=== PATIENT | female | born 1955 | race Caucasian/White ===

== ENCOUNTER → 2016-11-21 | Outpatient (CLI) | payer OTHER ==
[~2016-11-21] MED LIST: ACHD5005 PO; ALPR.25T PO; DULO60CA6 PO; GLMP2T PO; METF-380 PO; OLME20TA5 PO; SERT50TA; SIMV40TA4 PO; SMV20T
--- NOTE | 2016-11-21 11:56 | Diagnostic Imaging Report ---
PA and lateral views of the chest. INDICATION: Shortness of breath. COMPARISON: 06/07/12 FINDINGS: The lungs are clear. The heart size is normal. There is no effusion or pneumothorax. The mediastinum and abena appear unremarkable. IMPRESSION: Unremarkable exam. Dictated by: Dictated on workstation # [id number]
== END ==
LOC: RAD 09:38
PROVIDERS: ATTEND Family Medicine
DX: R06.02 Shortness of breath (principal); R22.43 Localized swelling, mass and lump, lower limb, bilateral; R22.33 Localized swelling, mass and lump, upper limb, bilateral
CPT/HCPCS: 71020

== ENCOUNTER → 2017-09-07 | Outpatient (CLI) | payer OTHER ==
[~2017-09-07] MED LIST changes: +ALPR0.254 PO; +ATOR20TA66 PO; +ESTR1TAB24 PO; +GLIM4TAB PO; +LIRA0.6P3 SQ; +LOSA50TA36 PO; +MEDR2.5T PO; +PANT40TA3 PO; +PARO10TA81 PO; +PHEN-483 PO
[2017-09-07 13:21] LABS: BASOPHILS % (AUTO) 0 % (0-10); EOSINOPHILS # (AUTO) 0.2 10^3/uL (0.0-0.3); EOSINOPHILS % (AUTO) 3 % (0-10); HEMATOCRIT 39 % (35-52); HEMOGLOBIN 13.7 G/DL (11.5-16.0); LYMPHOCYTES % (AUTO) 33 % (12-44); MEAN CORPUSCULAR HEMOGLOBIN 30 PG (25-34); MEAN CORPUSCULAR HGB CONC 35 G/DL (32-36); MEAN CORPUSCULAR VOLUME 86 FL (80-99); MEAN PLATELET VOLUME 9.7 FL (7.4-10.4); MONOCYTES # (AUTO) 0.9 X 10^3 (0.0-1.0); MONOCYTES % (AUTO) 10 % (0-12); NEUTROPHILS # (AUTO) 4.9 X 10^3 (1.8-7.8); NEUTROPHILS % (AUTO) 54 % (42-75); PLATELET COUNT 290 10^3/uL (130-400); RED BLOOD COUNT 4.52 10^6/uL (4.35-5.85); RED CELL DISTRIBUTION WIDTH 12.7 % (10.0-14.5); WHITE BLOOD COUNT 9.1 10^3/uL (4.3-11.0)
== END ==
LOC: LAB 12:56
PROVIDERS: ATTEND Family Medicine
DX: R10.31 Right lower quadrant pain (principal)
CPT/HCPCS: 36415; 85025

== ENCOUNTER → 2017-09-10 | Outpatient (CLI) | payer OTHER ==
[~2017-09-10] MED LIST changes: +IOHEXOL 350 MG/ML 100 ML (OMNIPAQUE 350) VIAL IV ONE; +NS 250 ML (IVPB) BAG IV ONE
[2017-09-10 08:44] LABS: BUN/CREATININE RATIO 15; CREATININE SERUM 0.73 MG/DL (0.60-1.30); GFR ESTIMATED > 60
--- NOTE | 2017-09-10 11:26 | Diagnostic Imaging Report ---
PROCEDURE: CT abdomen and pelvis with contrast. TECHNIQUE: Multiple contiguous axial images were obtained through the abdomen and pelvis after administration of intravenous contrast. INDICATION: Right lower quadrant pain and tenderness. Symptoms were worse over the weekend and the patient reports they have improved at least somewhat. The exam compared to 11/09/2015 Findings: Findings: There is an inflammatory fatty mass effect medial to the midsegment of the ascending colon consistent with right-sided epiploic appendagitis. The tubular appendage itself measures 2.4 cm in length by a thickness of 9 mm with peripheral edema. There is no fluid collection. This is on the medial/mesenteric border of the ascending colon. The proximal ascending colon as well as the cecum are transversely oriented in the pelvis adjacent to multiple sigmoid diverticuli challenging differentiation of the air-containing appendix from adjacent noninflamed diverticuli. The appendix is felt to be unremarkable. There is no finding suggestive of active sigmoidal diverticulitis. There is no abscess or fluid collection. No free air or perforation. There is no bowel obstruction. The colon itself aside from the sigmoidal diverticuli appeared unremarkable without wall thickening or mucosal edema or hyperemia. Uterus, adnexa and urinary bladder unremarkable. 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 The right kidney is orthotopic unobstructed and normal. The gallbladder absent. There is a small hiatal hernia. Liver, spleen, adrenals and pancreas were normal. There is aortoiliac atherosclerosis without stenosis or obstruction. Impression: A fatty inflammatory mass effect in the right lower quadrant has a tubular morphology and arises off the medial/mesenteric border of the midsegment of the ascending colon and is consistent with right sided acute epiploic appendagitis. Noninflamed sigmoid diverticulosis and no findings suggestive of appendicitis. No abscess, obstruction, perforation, ascites or fluid collection. Small and large bowel mera themselves and mucosal surfaces appeared unremarkable. 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 Dictated by: Dictated on workstation # [id number]
== END ==
LOC: RAD 08:10
PROVIDERS: ATTEND Family Medicine
DX: R19.03 Right lower quadrant abdominal swelling, mass and lump (principal); K57.30 Diverticulosis of large intestine without perforation or abscess without bleeding; Q63.2 Ectopic kidney
CPT/HCPCS: 36415; 74177; 82565; 84520

== ENCOUNTER 2017-09-29 05:41 | Outpatient (CLI) | payer OTHER ==
[~2017-09-29] VITALS: Ht 172.7 cm; Wt 88.0 kg
[~2017-09-29 05:41] MED LIST changes: -ALPR0.254 PO; -ATOR20TA66 PO; -ESTR1TAB24 PO; -GLIM4TAB PO; -IOHEXOL 350 MG/ML 100 ML (OMNIPAQUE 350) VIAL IV ONE; -LIRA0.6P3 SQ; -LOSA50TA36 PO; -MEDR2.5T PO; -NS 250 ML (IVPB) BAG IV ONE; -PANT40TA3 PO; -PARO10TA81 PO; -PHEN-483 PO
[2017-09-29] MEDS ORDERED: PARO10TA81 PO (15:22)
[2017-09-29] MEDS ORDERED: PHEN-483 PO (15:22)
[2017-09-29] MEDS ORDERED: ESTR1TAB24 PO (15:22)
[2017-09-29] MEDS ORDERED: GLIM4TAB PO (15:22)
[2017-09-29] MEDS ORDERED: PANT40TA3 PO (15:22)
[2017-09-29] MEDS ORDERED: LOSA50TA36 PO (15:22)
[2017-09-29] MEDS ORDERED: MEDR2.5T PO (15:22)
[2017-09-29] MEDS ORDERED: ALPR0.254 PO (15:22)
[2017-09-29] MEDS ORDERED: LIRA0.6P3 SQ (15:22)
[2017-09-29] MEDS ORDERED: ATOR20TA66 PO (15:22)
== END 2017-09-29 15:57 | disposition home or self-care (01) ==
LOC: PREOP 05:41
PROVIDERS: ATTEND Surgery
DX: Z01.818 Encounter for other preprocedural examination (principal)

== ENCOUNTER 2018-02-14 16:58 | Emergency (ER) | payer OTHER ==
[~2018-02-14] VITALS: Ht 172.7 cm; Wt 86.6 kg
[~2018-02-14 16:58] MED LIST changes: +ALPR0.254 PO; +ATOR20TA66 PO; +ESTR1TAB24 PO; +GLIM4TAB PO; +LIRA0.6P3 SQ; +LOSA50TA7 PO; +MEDR2.5T PO; +PANT40TA3 PO; +PARO10TA81 PO; +PHEN-483 PO
--- OUTSIDE RECORDS SUMMARY | 2018-02-14 17:03 | XMS REPORT | Continuity of Care Document ---
Author Author [facility] Organization [facility] Address Unknown Phone Unavailable Allergies Active Description Code Type Severity Reaction Onset Reported/Identified Relationship to Patient Clinical Status Yes [id number] (HAYFEVER) [id number] (HAYFEVER) Mild N/A 10/10/2008 Yes Sulfa (Sulfonamide Antibiotics) [id number] Drug Allergy Unknown NAUSEA Medications There is no data. Problems Date Dx Coded Attending Type Code Diagnosis Diagnosed By 09/05/2011 Ot 784.0 HEADACHE 06/08/2012 Ot 250.00 DIAB LISBETH WO COMPL, TYPE II OR UNSPEC TY 06/08/2012 Ot 272.4 HYPERLIPIDEMIA NEC/NOS 06/08/2012 Ot 401.9 HYPERTENSION NOS 06/08/2012 Ot 786.59 CHEST PAIN NEC 06/08/2012 Ot V03.82 PROPHYLACTIC VACC AGAINST STREPTOCOCCUS 06/08/2012 Ot V58.69 OTH MED,LT, CURRENT USE 03/18/2014 Ot V76.12 03/18/2014 AURORA LUCAS, FERCHO Staples Ot V76.12 03/18/2014 CAMRYN TINAJERO DO Ot 562.10 03/18/2014 GELCAMRYN NOEL DO Ot 787.3 03/18/2014 GELKRAIGDER CAMRYN MCKAY Ot 789.00 03/18/2014 GELLENDER CAMRYN MCKAY Ot 793.5 03/06/2015 Ot V76.12 03/06/2015 FERCHO SIMON MD Ot V76.12 03/06/2015 GELLENCAMRYN BATISTA DO Ot 562.10 03/06/2015 GELLENDER CAMRYN MCKAY Ot 787.3 03/06/2015 GELLENDER CAMRYN MCKAY Ot 789.00 03/06/2015 GELLENDER DOCAMRYN Ot 793.5 05/10/2015 GELCAMRYN NOEL DO Ot R22.1 06/07/2015 GELCAMRYN NOEL DO Ot R22.1 06/27/2015 Ot V76.12 06/27/2015 AURORA LUCAS, FERCHO Staples Ot V76.12 06/27/2015 GELLENDER DO, CAMRYN Darnell Ot 562.10 06/27/2015 GELLENDER DO, CAMRYN Darnell Ot 787.3 06/27/2015 GELLENDER DO, CAMRYN Darnell Ot 789.00 06/27/2015 GELLENDER DO, CAMRYN Darnell Ot 793.5 06/27/2015 GELLENDER DO, CAMRYN Darnell Ot R22.1 08/01/2015 Ot V76.12 OTH SCREEN MAMMO-MALIGN NEOPLASM OF EDGARD 08/01/2015 AURORA LUCAS, FERCHO Staples Ot V76.12 OTH SCREEN MAMMO-MALIGN NEOPLASM OF EDGARD 08/01/2015 GELLENDER DO, CAMRYN Darnell Ot 562.10 DIVERTICULOSIS COLON (W/O MENT OF HEMORR 08/01/2015 GELLENDER DO, CAMRYN Darnell Ot 787.3 FLATUL/ERUCTAT/GAS PAIN 08/01/2015 GELLENDER DO, CAMRYN Darnell Ot 789.00 ABDOMINAL PAIN, UNSPECIFIED SITE 08/01/2015 GELLENDER DO, CAMRYN Darnell Ot 793.5 NOSP (ABN) FINDINGS ON RADIOLOGICAL OT 08/01/2015 GELLENDER DO, CAMRYN Darnell Ot R22.1 LOCALIZED SWELLING, MASS AND LUMP, NECK 08/02/2015 GELLENDER DO, CAMRYN Darnell Ot Z12.31 ENCNTR SCREEN MAMMOGRAM FOR MALIGNANT NE 08/03/2015 GELLENDER DO, CAMRYN Darnell Ot Z12.31 ENCNTR SCREEN MAMMOGRAM FOR MALIGNANT NE 09/04/2015 GELLENDER DO, CAMRYN Darnell Ot Z12.31 ENCNTR SCREEN MAMMOGRAM FOR MALIGNANT NE 11/08/2015 GELLENDER DO, CAMRYN Darnell Ot N28.9 DISORDER OF KIDNEY AND URETER, UNSPECIFI 11/10/2015 GELLENDER DO, CAMRYN Darnell Ot K57.90 DVRTCLOS OF INTEST, PART UNSP, W/O PERF 11/10/2015 GELLENDER DO, CAMRYN Darnell Ot K57.90 DVRTCLOS OF INTEST, PART UNSP, W/O PERF 11/23/2015 GELLENDER DO, CAMRYN Darnell Ot N28.9 DISORDER OF KIDNEY AND URETER, UNSPECIFI 12/08/2015 GELLENDER DO, CAMRYN Darnell Ot K57.90 DVRTCLOS OF INTEST, PART UNSP, W/O PERF 11/21/2016 AURORA LUCAS, FERCHO Staples Ot V76.12 OTH SCREEN MAMMO-MALIGN NEOPLASM OF EDGARD 11/21/2016 GELLENDER DO, CAMRYN Darnell Ot 562.10 DIVERTICULOSIS COLON (W/O MENT OF HEMORR 11/21/2016 GELLENDER DO, CAMRYN Darnell Ot 787.3 FLATUL/ERUCTAT/GAS PAIN 11/21/2016 GELLENDER DO, CAMRYN Darnell Ot 789.00 ABDOMINAL PAIN, UNSPECIFIED SITE 11/21/2016 GELLENDER DO, CAMRYN Darnell Ot 793.5 NOSP (ABN) FINDINGS ON RADIOLOGICAL OT 11/21/2016 GELLENDER DO, CAMRYN Darnell Ot R22.1 LOCALIZED SWELLING, MASS AND LUMP, NECK 11/21/2016 GELLENDER DO, CAMRYN Darnell Ot Z12.31 ENCNTR SCREEN MAMMOGRAM FOR MALIGNANT NE 11/21/2016 [facility] CAM[facility]N Darnell Ot K57.90 DVRTCLOS OF INTEST, PART UNSP, W/O PERF 11/21/2016 GELLENDER DO, CAMRYN Darnell Ot N28.9 DISORDER OF KIDNEY AND URETER, UNSPECIFI 11/27/2016 GELLENDER DO, CAMRYN Darnell Ot R06.02 SHORTNESS OF BREATH 11/27/2016 GELLENDER DO, CAMRYN Darnell Ot R22.33 LOCALIZED SWELLING, MASS AND LUMP, UPPER 11/27/2016 GELLENDER DO, CAMRYN Darnell Ot R22.43 LOCALIZED SWELLING, MASS AND LUMP, LOWER 12/07/2016 GELLENDER DO, CAMRYN Darnell Ot R06.02 SHORTNESS OF BREATH 12/07/2016 GELLENDER DO, CAMRYN Darnell Ot R22.33 LOCALIZED SWELLING, MASS AND LUMP, UPPER 12/07/2016 GELLENDER DO, CAMRYN Darnell Ot R22.43 LOCALIZED SWELLING, MASS AND LUMP, LOWER 09/10/2017 COLTHARP DO, GEORGE Darnell Ot R10.31 RIGHT LOWER QUADRANT PAIN 09/11/2017 COLTHARP DO, GEORGE Darnell Ot K57.30 DVRTCLOS OF LG INT W/O PERFORATION OR AB 09/11/2017 COLTHARP DO, GEORGE Darnell Ot Q63.2 ECTOPIC KIDNEY 09/11/2017 COLTHARP DO, GEORGE A Ot R19.03 RIGHT LOWER QUADRANT ABDOMINAL SWELLING, 09/24/2017 COLTHARP DO, GEORGE A Ot R10.31 RIGHT LOWER QUADRANT PAIN 09/30/2017 DIMA HOLDER MD, Ot Z01.818 ENCOUNTER FOR OTHER PREPROCEDURAL EXAMIN 10/06/2017 DIMA HOLDER MD Ot D12.4 BENIGN NEOPLASM OF DESCENDING COLON 10/06/2017 DIMA HOLDER MD Ot E11.42 TYPE 2 DIABETES MELLITUS WITH DIABETIC P 10/06/2017 DIMA HOLDER MD, Ot K57.30 DVRTCLOS OF LG INT W/O PERFORATION OR AB 10/06/2017 DIMA HOLDER MD, Ot Z79.84 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 10/06/2017 DIMA HOLDER MD, Ot Z79.899 OTHER MCC (CURRENT) DRUG THERAPY 10/06/2017 DIMA HOLDER MD, Ot Z80.0 FAMILY HISTORY OF MALIGNANT NEOPLASM OF 10/08/2017 COLTHARP DO, GEORGE A Ot K57.30 DVRTCLOS OF LG INT W/O PERFORATION OR AB 10/08/2017 COLTHARP DO, GEORGE A Ot 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 Results Test Result Range Complete blood count (CBC) with automated white blood cell (WBC) differential - 09/07/17 13:18 Blood leukocytes automated count (number/volume) 9.1 10*3/uL 4.3-11.0 Blood erythrocytes automated count (number/volume) 4.52 10*6/uL 4.35-5.85 Venous blood hemoglobin measurement (mass/volume) 13.7 g/dL 11.5-16.0 Blood hematocrit (volume fraction) 39 % 35-52 Automated erythrocyte mean corpuscular volume 86 [foz_us] 80-99 Automated erythrocyte mean corpuscular hemoglobin (mass per erythrocyte) 30 pg 25-34 Automated erythrocyte mean corpuscular hemoglobin concentration measurement ( mass/volume) 35 g/dL 32-36 Automated erythrocyte distribution width ratio 12.7 % 10.0-14.5 Automated blood platelet count (count/volume) 290 10*3/uL 130-400 Automated blood platelet mean volume measurement 9.7 [foz_us] 7.4-10.4 Automated blood neutrophils/100 leukocytes 54 % 42-75 Automated blood lymphocytes/100 leukocytes 33 % 12-44 Blood monocytes/100 leukocytes 10 % 0-12 Automated blood eosinophils/100 leukocytes 3 % 0-10 Automated blood basophils/100 leukocytes 0 % 0-10 Blood neutrophils automated count (number/volume) 4.9 10*3 1.8-7.8 Blood lymphocytes automated count (number/volume) 3.0 10*3 1.0-4.0 Blood monocytes automated count (number/volume) 0.9 10*3 0.0-1.0 Automated eosinophil count 0.2 10*3/uL 0.0-0.3 Automated blood basophil count (count/volume) 0.0 10*3/uL 0.0-0.1 [id number] - 09/10/17 08:23 Serum or plasma urea nitrogen measurement (mass/volume) 11 mg/dL 7-18 Serum or plasma creatinine measurement (mass/volume) 0.73 mg/dL 0.60-1.30 Serum or plasma urea nitrogen/creatinine mass ratio 15 NRG Serum or plasma creatinine measurement with calculation of estimated glomerular filtration rate > NRG Capillary blood glucose measurement by glucometer (mass/volume) - 10/06/17 07: 33 Capillary blood glucose measurement by glucometer (mass/volume) 133 mg/dL 70-110 Encounters ACCT No. Visit Date/Time Discharge Status Pt. Type Provider Facility Loc./Unit Complaint [id number] 10/06/2017 06:50:00 10/06/2017 10:00:00 DIS Outpatient DIMA HOLDER MD [facility] ENDO ABNORMAL CT/FAMILY HX [id number] 09/29/2017 05:41:00 09/29/2017 15:57:00 DIS Outpatient DIMA HOLDER MD [facility] PREOP COLONOSCOPY [id number] 09/10/2017 08:10:00 09/10/2017 23:59:59 CLS Outpatient THGEORGE ROSE DO [facility] RAD RLQ PAIN AND TENDERNESS [id number] 09/07/2017 12:56:00 09/07/2017 23:59:59 CLS Outpatient GEORGE ANDREWS DO [facility] LAB RIGHT LOWER QUADRANT PAIN [id number] 11/21/2016 09:38:00 11/21/2016 23:59:59 CLS Outpatient CAMRYN TINAJERO DO [facility] RAD SHORT OF BREATH [id number] 11/09/2015 08:37:00 11/09/2015 23:59:59 CLS Outpatient TANVI MCKAY CAMRYN Darnell [facility] RAD ABDOMINAL PAIN [id number] 11/07/2015 17:17:00 11/07/2015 23:59:59 CLS Outpatient NARABERT MCKAY CAMRYN Darnell [facility] LAB RENAL INSUFF [id number] 08/01/2015 10:17:00 08/01/2015 23:59:59 CLS Outpatient CAMRYN TINAJERO DO [facility] RAD SCREENING [id number] 03/06/2015 11:36:00 03/06/2015 23:59:59 CLS Outpatient ROBINLESTER CAMRYN Darnell [facility] RAD SWELLING ON LEFT SIDE OF NECK, ONSET RECENTLY [id number] 07/25/2014 18:42:00 07/25/2014 23:59:59 CLS Outpatient TANMAY PETERSEN [facility] QUICK [id number] 03/18/2014 12:13:00 03/18/2014 12:13:00 CAN Preadmit LOPEZ GARCIA MD [facility] ER [id number] 2013 10:10:00 2013 23:59:59 CLS Outpatient GELLENDER DO, CAMRYN A [facility] RAD ABD DISENTION, ABD PAIN [id number] 11/04/2012 10:39:00 11/04/2012 23:59:59 CLS Outpatient FERCHO SIMON MD [facility] RAD SCREENING [id number] 03/06/2015 11:36:00 Document Registration [id number] 06/07/2012 01:25:00 Document Registration [id number] 09/05/2011 12:17:00 Document Registration [id number] 03/22/2010 09:07:00 Document Registration [id number] 07/25/2014 18:43:18 ACT Document Registration [id number] 05/08/2017 15:10:00 05/08/2017 23:59:59 CLS Outpatient [facility]
[2018-02-14] MEDS ORDERED: HYDROcodone/APAP 5 MG/325 MG (LORTAB) TAB PO ONE (18:15)
--- NOTE | 2018-02-14 18:41 | Diagnostic Imaging Report ---
INDICATION: Fall with left knee injury and pain. AP, oblique and lateral views of the left knee reveal horizontally oriented nondisplaced fracture through the mid portion of the patella. No other fracture or malalignment is identified. There is no abnormal lytic or sclerotic focus. IMPRESSION: Nondisplaced horizontal fracture through the mid patella. Dictated by: Dictated on workstation # [id number]
[2018-02-14] MEDS ORDERED: ACHD5005 PO (19:00)
[2018-02-14] MEDS ORDERED: RX-HYDROCODONE/APAP 5/325 MG #4 TAB PK PO PRN (19:00)
--- NOTE | 2018-02-14 19:00 | ED Lower Extremity ---
General Chief Complaint: Lower Extremity Stated Complaint: L KNEE PAIN/FALL Nursing Triage Note: AMB TO ROOM C/O L KNEE PAIN AFTER FALL. Nursing Sepsis Screen: No Definite Risk Source: patient Exam Limitations: no limitations History of Present Illness Date Seen by Provider: Feb 14, 2018 Time Seen by Provider: 18:00 Initial Comments Patient is a 62-year-old female who presents to the emergency room with complaints of left knee pain after a fall around 8:00 this morning. She reports that she was walking to the house in the dark when she slipped on some spilled dog food causing her to land with her knee to the dog's food bowl. She reports that she's had pain with ambulation ever since. Onset: this morning Pain/Injury Location: left knee Method of Injury: fell Modifying Factors: Worse With Movement Allergies and Home Medications Allergies Coded Allergies: Sulfa (Sulfonamide Antibiotics) (Verified Allergy, Unknown, NAUSEA, ) Home Medications Alprazolam 0.25 Mg Tablet, 0.25 MG PO HS PRN for SLEEP, (Reported) Atorvastatin Calcium 20 Mg Tablet, 20 MG PO HS, (Reported) Estradiol 1 Mg Tablet, 1 MG PO DAILY, (Reported) Glimepiride 4 Mg Tablet, 4 MG PO DAILY, (Reported) Hydrocodone Bit/Acetaminophen 1 Tab Tab, 1-2 EACH PO Q6H PRN for PAIN-MODERATE Prescribed by: LUZ ELENA LOPEZ on 02/14/18 1900 Liraglutide 0.6 Mg/0.1 Ml Pen.injctr, 1.2 MG SQ DAILY, (Reported) Losartan Potassium 50 Mg Tablet, 50 MG PO DAILY, (Reported) Medroxyprogesterone Acetate 2.5 Mg Tablet, 2.5 MG PO DAILY, (Reported) Pantoprazole Sodium 40 Mg Tablet.dr, 40 MG PO DAILY, (Reported) Paroxetine HCl 10 Mg Tablet, 10 MG PO DAILY, (Reported) Phentermine HCl 37.5 Mg Capsule, 37.5 MG PO DAILY, (Reported) Patient Home Medication List Home Medication List Reviewed: Yes Review of Systems Constitutional: see HPI; No chills, No fever Musculoskeletal: see HPI, joint pain (left knee pain) Skin: see HPI, other (abrasion to the left knee) All Other Systems Reviewed Negative Unless Noted: Yes Past Dsdjqvo-Xgosqe-Frvjhf Hx Past Med/Social Hx: Reviewed Nursing Past Med/Soc Hx Patient Social History Alcohol Use: Denies Use Recreational Drug Use: No Smoking Status: Never a Smoker Recent Foreign Travel: No Contact w/Someone Who Travel: No Recent Infectious Disease Expo: No Recent Hopitalizations: No Immunizations Up To Date Tetanus Booster (TDap): Unknown Date of Influenza Vaccine: Jan 13, 2012 Seasonal Allergies Seasonal Allergies: Yes Past Medical History Surgeries: Yes Gallbladder, Tonsillectomy Respiratory: No (UNDIAGNOSED SLEEP APNEA PER PT'S ) Currently Using CPAP: No Currently Using BIPAP: No Cardiac: Yes Hypertension Neurological: Yes Headaches /Migraines Reproductive Disorders: No Female Reproductive Disorders: Denies Sexually Transmitted Disease: No Gastrointestinal: Yes Gastroesophageal Reflux, Chronic Constipation Musculoskeletal: No Endocrine: Yes Diabetes, Non-Insulin dep Loss of Vision: Bilateral Hearing Impairment: Denies Cancer: No Did You Recieve Any Treatments: No Psychosocial: Yes Anxiety Integumentary: No Blood Disorders: No Family Medical History Reviewed Nursing Family Hx Physical Exam Vital Signs Vital Signs - First Documented 02/14/18 17:51 Temp 99.0 Pulse 93 Resp 18 B/P (MAP) 126/78 (94) Pulse Ox 97 O2 Delivery Room Air Capillary Refill : Less Than 3 Seconds Height, Weight, BMI Height: 5'8.00" Weight: 191lbs. 0.0oz. 86.994847nd; 29.5 BMI Method:Stated General Appearance: WD/WN, no apparent distress Neck: non-tender, full range of motion, supple, normal inspection Cardiovascular: normal peripheral pulses, regular rate, rhythm, no edema, no gallop, no JVD, no murmur Respiratory: chest non-tender, lungs clear, normal breath sounds, no respiratory distress, no accessory muscle use Knees: left knee pain, left knee soft tissue tenderness, left knee other ( abrasion to the left knee) Neurologic/Tendon: normal sensation, normal motor functions, normal tendon functions, responds to pain, no evidence tendon injury Neurologic/Psychiatric: alert, normal mood/affect, oriented x 3 Skin: normal color, warm/dry Normal capillary refill and distal pulses. Progress/Results/Core Measures Results/Orders My Orders Orders - LUZ ELENA LOPEZ Knee, Left, 3 Views (02/14/18 18:01) Hydrocodone/Apap 5/325 Tablet (Lortab 5 (02/14/18 18:15) Rx-Hydrocodone/Apap 5-325 Mg (Rx-Vicodin (02/14/18 19:00) Medications Given in ED Vital Signs/I&O 02/14/18 02/14/18 17:51 19:23 Temp 99.0 98.1 Pulse 93 90 Resp 18 16 B/P (MAP) 126/78 (94) 125/74 (91) Pulse Ox 97 95 O2 Delivery Room Air Room Air Blood Pressure Mean: 94 Progress Progress Note : Time: 18:58 Progress Note I seen and evaluated the patient. I've informed her of imaging studies. She was placed in a knee immobilizer and her went home to get the crutches for her to ambulate with. She agrees with plan of care, plans were discharged, return precautions were given. She requested follow-up with Dr. Prado. Diagnostic Imaging Diagonstic Imaging: Xray Plain Films/CT/US/NM/MRI: knee Comments NAME: GENEVA PARADA [facility] REC#: [id number] PT STATUS: DEP ER : 1955 PHYSICIAN: LUZ ELENA LOPEZ ADMIT DATE: 02/14/18/ER Signed Date of Exam: 02/14/18 KNEE, LEFT, 3 VIEWS INDICATION: Fall with left knee injury and pain. AP, oblique and lateral views of the left knee reveal horizontally oriented nondisplaced fracture through the mid portion of the patella. No other fracture or malalignment is identified. There is no abnormal lytic or sclerotic focus. IMPRESSION: Nondisplaced horizontal fracture through the mid patella. Dictated by: Dictated on workstation # [id number] Dict: 02/14/181836 Trans: 02/14/182105 Interpreted by: FARIDA OLIVA MD Electronically signed by: FARIDA OLIVA MD 02/14/182105 Reviewed: Reviewed by Me Departure Impression Primary Impression: Patella fracture Disposition: 01 HOME, SELF-CARE Condition: Stable/Unchanged Departure-Patient Inst. Decision time for Depature: 18:58 Referrals: CAMRYN TINAJERO DO (PCP/Family) Primary Care Physician Patient Instructions: Patella Fracture (DC) Add. Discharge Instructions: Take medications as directed. Ice to the knee at 20 minute intervals for pain and swelling. Use the knee immobilizer at all times. Use crutches at all times when ambulating. Do not bare anyway onto the left leg. Try to avoid bending the leg as much as possible. Follow-up with Dr. Prado within 1 week. Call first thing Friday morning for appointment time. Return back to the emergency room for any worsening pain, swelling, worsening symptoms, or any other concerns as needed. All discharge instructions reviewed with patient and/or family. Voiced understanding. Scripts Hydrocodone Bit/Acetaminophen (Hydrocodone/Acetaminophen 5/325mg Tablet) 1 Tab Tab 1-2 EACH PO Q6H PRN for PAIN-MODERATE MDD 10, #20 TAB Prov: LUZ ELENA LOPEZ 02/14/18 Copy Copies To 1: BRAYAN PRADO MD, TRAVIS Feb 14, 2018 19:00
[2018-02-14 19:23] VITALS: BP 125/74
== END 2018-02-14 19:19 | disposition home or self-care (01) ==
LOC: EDUNIT# 16:58 → ER 16:59
DX: S82.002A Unspecified fracture of left patella, initial encounter for closed fracture (principal); I10 Essential (primary) hypertension; G43.909 Migraine, unspecified, not intractable, without status migrainosus; K21.9 Gastro-esophageal reflux disease without esophagitis; E11.9 Type 2 diabetes mellitus without complications; F41.9 Anxiety disorder, unspecified; Z87.19 Personal history of other diseases of the digestive system; Z88.2 Allergy status to sulfonamides; Z79.84 Long term (current) use of oral hypoglycemic drugs; Z90.89 Acquired absence of other organs; W19.XXXA Unspecified fall, initial encounter
CPT/HCPCS: 73562

== ENCOUNTER 2018-07-08 12:53 | Outpatient (CLI) | payer OTHER ==
[~2018-07-08 12:53] MED LIST changes: +LOSA50TA63 PO; -LOSA50TA7 PO
== END 2018-07-08 13:50 | disposition home or self-care (01) ==
LOC: SLEEP 12:53
PROVIDERS: ATTEND Nurse Practitioner Family
DX: G47.33 Obstructive sleep apnea (adult) (pediatric) (principal)

== ENCOUNTER 2018-10-05 20:37 | Outpatient (CLI) | payer OTHER | END 2018-10-06 05:45 | disposition home or self-care (01) | LOC: SLEEP 20:37 | PROVIDERS: ATTEND Otolaryngology Otolaryngology/Facial Plastic Surgery | DX: G47.33 Obstructive sleep apnea (adult) (pediatric) (principal) | CPT/HCPCS: 95811 ==

== ENCOUNTER → 2019-04-12 | Outpatient (CLI) | payer OTHER ==
--- NOTE | 2019-04-13 09:41 | Diagnostic Imaging Report ---
INDICATION: Routine screening. Comparison is made with prior mammogram 08/01/2015 and 11/04/2012. 2-D and 3-D bilateral screening mammography was performed with CAD. Both breasts are heterogeneously dense, limiting the sensitivity of mammography. Overall breast parenchymal density has increased since prior study, perhaps owing to hormone replacement therapy. No dominant mass or malignant appearing microcalcifications are seen. Axillae are unremarkable. IMPRESSION: BI-RADS Category 1 No mammographic features suspicious for malignancy are identified. ACR BI-RADS Category 1: Negative. Result letter will be mailed to the patient. Note: At least 10% of breast cancer is not imaged by mammography. Dictated by: Dictated on workstation # [id number]
== END ==
LOC: RAD 15:16
PROVIDERS: ATTEND Obstetrics & Gynecology
DX: Z12.31 Encounter for screening mammogram for malignant neoplasm of breast (principal)
CPT/HCPCS: 77067

== ENCOUNTER → 2019-09-21 | Outpatient (CLI) | payer OTHER ==
[~2019-09-21] MED LIST changes: -GLIM4TAB PO; +GLIM4TAB5 PO
--- NOTE | 2019-09-21 17:34 | Diagnostic Imaging Report ---
INDICATION: Cough and shortness of breath. TIME OF EXAM 1:23 PM COMPARISON is made with prior chest from 11/21/2016. FINDINGS: The heart size is normal. The pulmonary vascularity is unremarkable. The lungs are clear. No infiltrate, effusion or pneumothorax is detected. IMPRESSION: No acute cardiopulmonary process is detected. Dictated by: Dictated on workstation # [id number]
== END ==
LOC: RAD 12:00
PROVIDERS: ATTEND Nurse Practitioner Family
DX: R06.02 Shortness of breath (principal); R05 Cough
CPT/HCPCS: 71046

== ENCOUNTER 2019-11-11 05:33 | Outpatient (RCR) | payer OTHER ==
[~2019-11-11] VITALS: Ht 170.2 cm; Wt 85.0 kg
== END 2019-11-11 10:05 | disposition home or self-care (01) ==
LOC: PREOP 05:33
PROVIDERS: ATTEND Surgery
DX: Z01.812 Encounter for preprocedural laboratory examination (principal); K21.9 Gastro-esophageal reflux disease without esophagitis; Z88.2 Allergy status to sulfonamides; Z20.828 Contact with and (suspected) exposure to other viral communicable diseases
CPT/HCPCS: 87635

== ENCOUNTER 2019-11-16 08:57 | Day surgery (SDC) | payer OTHER ==
[~2019-11-16] VITALS: Ht 170.2 cm; Wt 85.0 kg
[2019-11-16] MEDS ORDERED: LACTATED RINGERS 1,000 ML IV ONE (09:05)
[2019-11-16] MEDS ORDERED: proPOfol 200 MG/20 ML (DIPRIVAN) VIAL IV ONE (09:14)
[2019-11-16] MEDS ORDERED: MIDAZOLAM 2 MG/2 ML (VERSED) VIAL ONE (09:14)
[2019-11-16] MEDS ORDERED: LACTATED RINGERS 1,000 ML IV STA (09:23)
[2019-11-16 09:28] VITALS: BP 122/75
[2019-11-16] MEDS ORDERED: HURRICAINE EXT TUBE (BENZOCAINE) XX PRN (09:30)
--- NOTE | 2019-11-16 09:47 | Progress Note-Pre Operative ---
Pre-Operative Progress Note H&P Reviewed The H&P was reviewed, patient examined and no changes noted. Date Seen by Provider: Nov 16, 2019 Time Seen by Provider: 09:46 Date H&P Reviewed: Nov 16, 2019 Time H&P Reviewed: 09:46 Pre-Operative Diagnosis: epigastric abd pain, gerd NAVEED YEN DO Nov 16, 2019 09:47
--- NOTE | 2019-11-16 10:07 | Progress Note-Post Operative ---
Post-Operative Progess Note Surgeon (s)/Title Coordinator (s) Surgeon NAVEED YEN DO Title Coordinator: na Pre-Operative Diagnosis epigastric abd pain, gerd Post-Operative Diagnosis small hiatal hernia, slight gastritis Procedure & Operative Findings Date of Procedure 11/16/19 Procedure Performed/Findings egd c biopsies Anesthesia Type per [facility] Estimated Blood Loss Estimated blood loss (mL): none Specimens/Packing Specimens Removed antrum, ge NAVEED YEN DO Nov 16, 2019 10:07
[2019-11-16 10:09] VITALS: BP 136/65
[2019-11-16] MEDS ORDERED: SUCR1TAB36 PO (10:09)
--- NOTE | 2019-11-16 10:11 | Discharge Inst-Simple/Standard ---
Discharge Inst-Standard Discharge Medications New, Converted or Re-Newed RX: Transmitted to Pharmacy Patient Instructions/Follow Up Plan of Care/Instructions/FU: 2 weeks Niels Activity as Tolerated: Yes Discharge Diet: Regular Diet NAVEED YEN DO Nov 16, 2019 10:10
[2019-11-16 10:15] VITALS: BP 115/58
[2019-11-16 10:40] VITALS: BP 118/67
[2019-11-16 10:50] VITALS: BP 118/67
--- NOTE | 2019-11-16 13:48 | OPERATIVE REPORT ---
DATE OF SERVICE: 11/16/2019 PREOPERATIVE DIAGNOSES: Epigastric abdominal pain, gastroesophageal reflux disease. POSTOPERATIVE DIAGNOSES: Slight gastritis, small hiatal hernia. PROCEDURE: EGD with biopsies. SURGEON: Naveed Bowser DO ANESTHESIA: Per MDA. ESTIMATED BLOOD LOSS: None. COMPLICATIONS: None. INDICATIONS: The patient is a 64-year-old female with GERD and epigastric abdominal pain. She understands risks and benefits of procedure and wished to proceed with procedure. Consent was signed in the chart. DESCRIPTION OF PROCEDURE: The patient was taken to endoscopy suite, placed in left lateral recumbent position. Timeout was performed. Scope was inserted in mouth, down the esophagus, stomach and into the duodenum without difficulty. There were no polyps, masses or ulcerations within the duodenum. Scope was then slowly retracted back into the stomach where it was further insufflated. Slight erythematous changes consistent with gastritis. Biopsy of the antrum was obtained. Scope was retroflexed noting a small hiatal hernia, no other pathology. Scope was returned to its normal position, slowly withdrawn to distal esophagus. Biopsy of the GE junction was obtained. Scope was then slowly retracted back to completely remove noting no other pathology. The patient tolerated procedure well without any complications. She was taken to recovery room in stable condition. RECOMMENDATIONS: The patient started on Carafate 1 gram four times a day. We will continue on Protonix. We will follow up in the office in two to three weeks. Any issues before that be seen at that time. Further recommendations pending pathology results. Job ID: [id number] DocumentID: [id number] Dictated Date: 11/16/2019 10:13:24 Apple Turner Date: 11/16/2019 13:47:23 Dictated By: NAVEED BOWESR DO
--- NOTE | 2019-11-16 15:21 | Anesthesia-General Post-Op ---
MAC Patient Condition Mental Status/LOC: Same as Preop Cardiovascular: Satisfactory Nausea/Vomiting: Absent Respiratory: Satisfactory Pain: Controlled Complications: Absent Post Op Complications Complications None Follow Up Care/Instructions Patient Instructions None needed. Anesthesiology Discharge Order Discharge Order Patient was seen after the procedure and she was doing well, no complaints, stable vital signs, no apparent adverse anesthesia problems. ANDREW MAI DO Nov 16, 2019 15:21
== END 2019-11-16 10:50 | disposition home or self-care (01) ==
LOC: ENDO 08:57
PROVIDERS: ATTEND Surgery
DX: K21.0 Gastro-esophageal reflux disease with esophagitis (principal); K44.9 Diaphragmatic hernia without obstruction or gangrene; K29.70 Gastritis, unspecified, without bleeding; I10 Essential (primary) hypertension; G47.33 Obstructive sleep apnea (adult) (pediatric); K21.9 Gastro-esophageal reflux disease without esophagitis; E78.5 Hyperlipidemia, unspecified; E11.40 Type 2 diabetes mellitus with diabetic neuropathy, unspecified; F41.9 Anxiety disorder, unspecified; E66.9 Obesity, unspecified; Z68.29 Body mass index [BMI] 29.0-29.9, adult; Z79.84 Long term (current) use of oral hypoglycemic drugs; Z79.899 Other long term (current) drug therapy; Z88.2 Allergy status to sulfonamides; Z88.1 Allergy status to other antibiotic agents

== ENCOUNTER → 2020-09-14 | Outpatient (CLI) | payer OTHER ==
[~2020-09-14] MED LIST changes: -ALPR0.254 PO; +GADOBUTROL 10 MMOL/10 ML (GADAVIST) VIAL IV ONE; -PANT40TA3 PO; +PANT40TA52 PO; +SUCR1TAB36 PO
--- NOTE | 2020-09-14 10:21 | Diagnostic Imaging Report ---
PROCEDURE: MR imaging of the brain with and without contrast. TECHNIQUE: Multiplanar, multisequence MR imaging of the brain was performed with and without contrast. INDICATION: Persistent dizziness. Blurry vision. COMPARISON: MRI brain without and with IV contrast 08/14/2006. CT head without contrast 09/05/2011. FINDINGS: Mild nonspecific T2 hyperintensities in the supratentorial white matter are age appropriate. Benign developmental venous anomaly in the superior left parasagittal frontal lobe is stable since 2006. No other abnormal intracranial enhancement. No restricted water diffusion. No hemosiderin deposition or evidence of intracranial hemorrhage. Normal morphology including the major midline structures, sella, posterior fossa and cerebellar pontine angle. No hydrocephalus or extra-axial fluid collections. Normal intracranial flow voids. The orbits are unremarkable on this nondedicated exam. Mucosal thickening in the ethmoid and maxillary sinuses, greatest in the left maxillary sinus. Small amount of fluid in the right mastoid. Normal bone marrow signal. IMPRESSION: 1. No acute intracranial MRI findings. 2. Stable benign developmental venous anomaly in the parasagittal left frontal lobe. 3. Mild mucosal thickening in the ethmoid and sphenoid sinuses. 4. Small nonspecific right mastoid effusion. Dictated by: Dictated on workstation # [id number]
== END ==
LOC: RAD 09:30
PROVIDERS: ATTEND Nurse Practitioner Family
DX: J34.89 Other specified disorders of nose and nasal sinuses (principal); H53.8 Other visual disturbances; H74.8X1 Other specified disorders of right middle ear and mastoid; R42 Dizziness and giddiness; R51.9 Headache, unspecified
CPT/HCPCS: 70553

== ENCOUNTER → 2021-01-23 | Outpatient (CLI) | payer MEDICARE ==
[~2021-01-23] MED LIST changes: -GADOBUTROL 10 MMOL/10 ML (GADAVIST) VIAL IV ONE
--- NOTE | 2021-01-23 18:40 | Diagnostic Imaging Report ---
INDICATION: Routine screening. COMPARISON is made with prior mammograms from 04/12/2019 and 08/01/2015. 2-D and 3-D bilateral screening mammography was performed with CAD. Both breasts are heterogeneously dense, limiting the sensitivity of mammography. The parenchymal pattern is stable. No mass or malignant-appearing microcalcifications are seen. Axillae are unremarkable. There are occasional benign calcifications. IMPRESSION: BI-RADS Category 2. No mammographic features suspicious for malignancy are identified. ACR BI-RADS Category 2: Benign findings. Result letter will be mailed to the patient. Note: At least 10% of breast cancer is not imaged by mammography. Dictated by: Dictated on workstation # [id number]
== END ==
LOC: RAD 08:30
PROVIDERS: ATTEND Obstetrics & Gynecology
DX: Z12.31 Encounter for screening mammogram for malignant neoplasm of breast (principal)
CPT/HCPCS: 77063; 77067

== ENCOUNTER → 2022-04-28 | Outpatient (CLI) | payer MEDICARE ==
[~2022-04-28] MED LIST changes: +PARO-134 PO; -PARO10TA81 PO
--- NOTE | 2022-04-28 16:17 | Diagnostic Imaging Report ---
CLINICAL INDICATION: Patient with no known injury. Patient with right hip pain that goes down her right leg. EXAM: X-ray of the right hip, AP and frog-leg views. COMPARISON: None. FINDINGS: There is no acute fracture or dislocation. There are small degenerative spurs involving the proximal right femoral head/neck junction region. There is mild enthesopathy of the right greater trochanter. Limited visualization of the right sacroiliac joints unremarkable. IMPRESSION: There are minimal degenerative changes of the right hip with no acute fracture or dislocation. Dictated by: Dictated on workstation # [id number]
--- NOTE | 2022-04-28 16:23 | Diagnostic Imaging Report ---
CLINICAL INDICATION: Patient with no known injury. Patient has low back pain that goes down her right leg. EXAM: X-rays of the lumbar spine, 3 views. COMPARISON: None. FINDINGS: There is no acute lumbar spine fracture or dislocation. There is subtle grade 1 anterolisthesis of L4 on L5 with no pars defect seen. There is levoscoliosis of the thoracolumbar spine. There are mildly hypertrophic spurs involving the lumbar spine and lower lumbar spine facet arthropathy. IMPRESSION: 1: There is no acute fracture of the lumbar spine. 2: There is degenerative disease of the lumbar spine including subtle grade 1 anterolisthesis of L4 on L5. Dictated by: Dictated on workstation # [id number]
== END ==
LOC: RAD 13:58
PROVIDERS: ATTEND Registered Nurse Critical Care Medicine
DX: M47.816 Spondylosis without myelopathy or radiculopathy, lumbar region (principal); I10 Essential (primary) hypertension; K21.9 Gastro-esophageal reflux disease without esophagitis; F32.1 Major depressive disorder, single episode, moderate; E78.49 Other hyperlipidemia; E11.9 Type 2 diabetes mellitus without complications
CPT/HCPCS: 72100; 73502

== ENCOUNTER → 2022-05-13 | Outpatient (CLI) | payer MEDICARE ==
[~2022-05-13] MED LIST changes: +CATHETER FLUSH 10 ML SYR IVP PRN
[2022-05-13 08:07] VITALS: BP 128/72
--- NOTE | 2022-05-13 09:59 | Cardiology Stress Test Report ---
Stress Test Report Date of Procedure/Referring: Date of Procedure: May 13, 2022 PCP Maria Isabel Tan Dnp Admitting Physician Admitting Physician: Attending Physician: Maria Isabel Tan Dnp Indications: CP Baseline Vital Signs Vital Signs Date Time Temp Pulse Resp B/P (MAP) Pulse Ox O2 Delivery O2 Flow Rate FiO2 05/13/22 08:07 80 128/72 (90) 98 Summary: Patient receive a resting and stress dose of Myoview, images were acquired and reviewed in the short axis view, horizontal long axis view and vertical long axis view. TID: 0.97 SSS: 0 SDS: 0 EF: 85 1. No significant ischemia or infarction noted on SPECT images 2. Normal left ventricular size with ejection fraction 85% Copy Copies To 1: HÉCTOR TAN BASHAR J MD May 13, 2022 09:59
== END ==
LOC: CARD 06:41
PROVIDERS: ATTEND Nurse Practitioner Family
DX: R07.89 Other chest pain (principal)
CPT/HCPCS: 78452; 93017; A9502

== ENCOUNTER → 2022-05-14 | Outpatient (CLI) | payer MEDICARE ==
[~2022-05-14] MED LIST changes: -CATHETER FLUSH 10 ML SYR IVP PRN
== END ==
LOC: CARD 10:30
PROVIDERS: ATTEND Nurse Practitioner Family
DX: R07.89 Other chest pain (principal)
CPT/HCPCS: 93306

== ENCOUNTER → 2022-09-20 | Outpatient (CLI) | payer MEDICARE | LOC: CARD 07:31 | PROVIDERS: ATTEND Nurse Practitioner Family | DX: R00.2 Palpitations (principal) | CPT/HCPCS: 93242 ==

== ENCOUNTER 2022-10-16 21:52 | Emergency (ER) | payer MEDICARE ==
[~2022-10-16] VITALS: Ht 170 cm; Wt 83.9 kg
[2022-10-16 22:09] LABS: BASOPHILS # (AUTO) 0.1 10^3/uL (0.0-0.1); BASOPHILS % (AUTO) 1 % (0-10); EOSINOPHILS # (AUTO) 0.3 10^3/uL (0.0-0.3); EOSINOPHILS % (AUTO) 3 % (0-10); HEMATOCRIT 36 % (35-52); HEMOGLOBIN 12.4 g/dL (11.5-16.0); LYMPHOCYTES % (AUTO) 49 % (12-44); MEAN CORPUSCULAR HEMOGLOBIN 29 pg (25-34); MEAN CORPUSCULAR HGB CONC 34 g/dL (32-36); MEAN CORPUSCULAR VOLUME 84 fL (80-99); MEAN PLATELET VOLUME 9.5 fL (9.0-12.2); MONOCYTES # (AUTO) 0.7 10^3/uL (0.0-1.0); MONOCYTES % (AUTO) 9 % (0-12); NEUTROPHILS # (AUTO) 3.1 10^3/uL (1.8-7.8); NEUTROPHILS % (AUTO) 38 % (42-75); PLATELET COUNT 322 10^3/uL (130-400); WHITE BLOOD COUNT 8.1 10^3/uL (4.3-11.0)
--- NOTE | 2022-10-16 22:15 | ED Neurological Problem ---
General Chief Complaint: Facial Problems Stated Complaint: LEFT SIDE FACIAL NUMBNESS Nursing Triage Note: PATIENT VERBALIZED APPROX 1 HOUR AGO FOR HEAD PAIN, STATES NOW FACIAL TINGLING. PATIENT STATES SHE TOOK A BENADRYL FOR ITCHING UNDER SKIN Source: patient History of Present Illness Date Seen by Provider: Oct 16, 2022 Time Seen by Provider: 22:00 Initial Comments PT ARRIVES VIA POV FROM HOME PT STATES ABOUT AN HOUR AGO, SHE WAS SITTING WATCHING TV, AND BEGAN TO HAVE TINGLING SENSATION TO THE LEFT SIDE OF HER SCALP AND THEN IT MOVED DOWN TO LEFT SIDE OF FACE/CHEEK BONE. NO ACTUAL NUMBNESS TO FACE--ONLY FEELS TINGLY AND HAS A SLIGHT ITCHING SENSATION UNDER THE SKIN NO FACIAL PAIN OR DROOPING. NO PRE OR POST AURICULAR PAIN OR TINGLING NO DIFFICULTY HEARING NO DIFFICULTY TALKING OR SWALLOWING STATES HER VISION IN HER LEFT EYE "ISN'T QUITE RIGHT" BUT IS ABLE TO SEE OUT OF IT. NO DIFFICULTY WITH BALANCE NO PROBLEMS MOVING EXTREMITIES NO HISTORY OF SIMILAR PT IS NOT ON ASPIRIN OR BLOOD THINNERS NO FEVER OR RECENT ILLNESS NO MEDICATION CHANGES PT HAS HTN, HYPERLIPIDEMIA, NIDDM, NEUROPATHY SHE IS ON VYVANSE FOR ADHD AND HAS HISTORY OF ANXIETY SHE HAS BEEN HAVING SOME PALPITATIONS--MOSTLY AT NIGHT WHEN SHE IS LAYING DOWN SHE HAD A HOLTER MONITOR A COUPLE OF WEEKS AGO, DOES NOT KNOW RESULTS SHE HAD A NORMAL ECHCARDIOGRAM AND NORMAL STRESS TEST IN APRIL OF THIS YEAR. PCP: DANA CONROY / DR. CONROY'S OFFICE. Allergies and Home Medications Allergies Coded Allergies: Sulfa (Sulfonamide Antibiotics) (Verified Allergy, Unknown, NAUSEA, 09/29/17) Patient Home Medication List Home Medication List Reviewed: Yes ALPRAZolam (Xanax Tablet) 0.25 Mg Tablet, 0.25 MG PO HS PRN for SLEEP, (Reported) Entered as Reported by: TABITHA MORGAN on 09/29/17 152 Atorvastatin Calcium (Atorvastatin Calcium) 20 Mg Tablet, 20 MG PO HS, (Reported) Entered as Reported by: TABITHA MORGAN on 09/29/17 152 Estradiol (Estradiol Tablet) 1 Mg Tablet, 1 MG PO DAILY, (Reported) Entered as Reported by: TABITHA MORGAN on 09/29/17 152 Glimepiride (Glimepiride) 4 Mg Tablet, 4 MG PO DAILY, (Reported) Entered as Reported by: TABITHA MORGAN on 09/29/171521 Liraglutide (Victoza 3-Marshall) 0.6 Mg/0.1 Ml Pen.injctr, 1.2 MG SQ DAILY, (R eported) Entered as Reported by: TABITHA MORGAN on 09/29/171521 Losartan Potassium (Losartan Potassium) 50 Mg Tablet, 50 MG PO DAILY, (Reported) Entered as Reported by: TABITHA MORGAN on 09/29/171521 Medroxyprogesterone Acetate (Provera) 2.5 Mg Tablet, 2.5 MG PO DAILY, (Reported) Entered as Reported by: TABITHA MORGAN on 09/29/171521 Pantoprazole Sodium (Pantoprazole Sodium) 40 Mg Tablet.dr, 40 MG PO DAILY, (Reported) Entered as Reported by: TABITHA MORGAN on 09/29/171521 Paroxetine HCl (Paxil) 10 Mg Tablet, 10 MG PO DAILY, (Reported) Entered as Reported by: TABITHA MORGAN on 09/29/171521 Phentermine HCl (Phentermine HCl) 37.5 Mg Capsule, 37.5 MG PO DAILY, (Reported) Entered as Reported by: TABITHA MORGAN on 09/29/171521 Sucralfate (Carafate) 1 Gm Tablet, 1 GM PO QID Prescribed by: NAVEED YEN on 11/16/19 1009 Review of Systems Review of Systems Constitutional: no symptoms reported Eyes: See HPI Ears, Nose, Mouth, Throat: no symptoms reported Respiratory: no symptoms reported Cardiovascular: no symptoms reported Gastrointestinal: no symptoms reported Genitourinary: no symptoms reported Musculoskeletal: no symptoms reported Skin: no symptoms reported; No rash Psychiatric/Neurological: See HPI, Anxiety Endocrine: No Symptoms Reported Hematologic/Lymphatic: No Symptoms Reported Past Nalrhsx-Vzeexs-Hegfve Hx Patient Social History Tobacco Use?: No Use of E-Cig and/or Vaping dev: No Substance use?: No Alcohol Use?: No Immunizations Up To Date Tetanus Booster (TDap): Unknown Influenza Vaccine Up-to-Date: Yes; Up-to-Date First/Initial COVID19 Vaccinat: 2020 Second COVID19 Vaccination Oswaldo: 2020 Third COVID19 Vaccination Date: 2021 Seasonal Allergies Seasonal Allergies: Yes Past Medical History Surgeries: Yes Gallbladder, Tonsillectomy Respiratory: Yes Sleep Apnea Currently Using CPAP: Yes Currently Using BIPAP: No Cardiac: Yes High Cholesterol, Hypertension Neurological: Yes Headaches /Migraines, Neuropathy Reproductive Disorders: No Female Reproductive Disorders: Denies Sexually Transmitted Disease: No Genitourinary: No Gastrointestinal: Yes Gastroesophageal Reflux, Chronic Constipation Musculoskeletal: No Endocrine: Yes Diabetes, Non-Insulin dep Loss of Vision: Bilateral Hearing Impairment: Denies Cancer: No Did You Recieve Any Treatments: No Psychosocial: Yes ADD/ADHD, Anxiety Integumentary: No Blood Disorders: No Family Medical History ECHOCARDIOGRAM 05/14/22--NORMAL. STRESS TEST 05/13/22 Summary: Patient receive a resting and stress dose of Myoview, images were acquired and reviewed in the short axis view, horizontal long axis view and vertical long axis view. TID: 0.97 SSS: 0 SDS: 0 EF: 85 1. No significant ischemia or infarction noted on SPECT images 2. Normal left ventricular size with ejection fraction 85% Physical Exam Vital Signs Vital Signs - First Documented 10/16/22 21:58 Temp 36.9 Pulse 77 Resp 20 B/P (MAP) 140/65 (90) Pulse Ox 96 O2 Delivery Room Air Capillary Refill : Less Than 3 Seconds Height, Weight, BMI Height: 5'8.00" Weight: 191lbs. 0.0oz. [id number]; 29.00 BMI Method:Stated General Appearance: WD/WN, no apparent distress HEENT: PERRL/EOMI, normal ENT inspection, TMs normal, pharynx normal Neck: non-tender, full range of motion, supple, normal inspection; No carotid bruit Respiratory: normal breath sounds, no respiratory distress, no accessory muscle use Cardiovascular: normal peripheral pulses, regular rate, rhythm, no edema, no JVD, no murmur Peripheral Pulses: 2+ Dorsalis Pedis (R), 2+ Left Dors-Pedis (L), 2+ Radial Pulses (R), 2+ Radial Pulses (L) Gastrointestinal: non tender, soft Back: normal inspection Extremities: normal range of motion, non-tender, normal inspection, no pedal edema, no calf tenderness, normal capillary refill Neurologic/Psychiatric: shed workers supervisor II-XII nml as tested, no motor/sensory deficits, alert, normal mood/affect, oriented x 3; No abnormal cerebellar tests Crainal Nerves: normal hearing, normal speech, PERRL Coordination/Gait: normal finger to nose, normal gait, negative Romberg's sign Motor/Sensory: no motor deficit, no sensory deficit, no pronator drift Reflexes: 2+ Bicep (R), 2+ Bicep (L), 2+ Knee (R), 2+ Knee (L) Skin: normal color, warm/dry; No rash Stroke Onset of Symptoms Date of Onset of Symptoms: Oct 16, 2022 Time of Symptom Onset: 21:00 Onset of Symptoms: Yes NIH Stroke Scale Assessment Select: Initial Level of Consciousness: 0=Alert (0), Level of Consciousness- Questions: 0=Answers both month/age (0), LOC Commands: 0=Performs both tasks (0), Gaze: Normal (0), Visual Craven: 0=No visual loss (0), Facial Movement (Facial Paresis): 0=Normal symmetrical mnt (0), Motor Function-Arms Right: 0=No drift (0), Motor Function-Arms Left: 0=No drift (0), Motor Function-Legs Right: 0=No drift (0), Motor Function-Legs Left: 0=No drift (0), Limb Ataxia: 0=Absent (0), Sensory: 0=Normal:no loss (0), Best Language: 0=No aphasia (0), Dysarthria: 0=Normal (0), Extinction & Inattention: 0=No abnormality (0), Total: 0 Stroke Thrombolytic Exclusion Age 18 or Over: Yes Acute intenal hemorrhage: No History of CVA: No Uncontrolled Coagulation Defec: No Intracranial Hemorrhage: No Severe Hypertension: No GI or Bleed: No Subarachnoid Hemorrhage: No Intracranial Neoplasm/Aneurysm: No Oral Anticoagulants: No Surgery or Trauma: No Puncture of Non-Compressible V: No Recent CPR: No Diabetic Hemorrhagic Retinopat: No Organ Biopsy: No Recent Obstetric Delivery: No Glucose: No Significant Hepatic Dysfunctio: No NIH Stoke Scale >22: No Bacterial Endocarditis: No Pericarditis: No Improving Symptoms: Yes Platelets: No TPA Contraindication: No IV - TPa Received IV - TPa Procedure Performed?: No (NIH IS 0 AND SYMPTOMS ARE RAPIDLY IMPROVING. ) Progress/Results/Core Measures Results/Orders Lab Results Laboratory Tests Test 10/16/22 22:01 10/16/22 23:15 Range/Units White Blood Count 8.1 4.3-11.0 10^3/uL Red Blood Count 4.33 3.80-5.11 10^6/uL Hemoglobin 12.4 11.5-16.0 g/dL Hematocrit 36 35-52 % Mean Corpuscular Volume 84 80-99 fL Mean Corpuscular Hemoglobin 29 25-34 pg Mean Corpuscular Hemoglobin Concent 34 32-36 g/dL Red Cell Distribution Width 12.4 10.0-14.5 % Platelet Count 322 130-400 10^3/uL Mean Platelet Volume 9.5 9.0-12.2 fL Immature Granulocyte % (Auto) 0 % Neutrophils (%) (Auto) 38 L 42-75 % Lymphocytes (%) (Auto) 49 H 12-44 % Monocytes (%) (Auto) 9 0-12 % Eosinophils (%) (Auto) 3 0-10 % Basophils (%) (Auto) 1 0-10 % Neutrophils # (Auto) 3.1 1.8-7.8 10^3/uL Lymphocytes # (Auto) 4.0 1.0-4.0 10^3/uL Monocytes # (Auto) 0.7 0.0-1.0 10^3/uL Eosinophils # (Auto) 0.3 0.0-0.3 10^3/uL Basophils # (Auto) 0.1 0.0-0.1 10^3/uL Immature Granulocyte # (Auto) 0.0 0.0-0.1 10^3/uL Prothrombin Time 12.3 12.2-14.7 SEC INR Comment 0.9 0.8-1.4 Activated Partial Thromboplast Time 26 24-35 SEC D-Dimer 0.39 0.00-0.49 UG/ML Sodium Level 140 135-145 MMOL/L Potassium Level 3.6 3.6-5.0 MMOL/L Chloride Level 100 98-107 MMOL/L Carbon Dioxide Level 28 21-32 MMOL/L Anion Gap 12 5-14 MMOL/L Blood Urea Nitrogen 18 7-18 MG/DL Creatinine 0.87 0.60-1.30 MG/DL Estimat Glomerular Filtration Rate 73 BUN/Creatinine Ratio 21 Glucose Level 158 H 70-105 MG/DL Glucometer 153 H 70-110 MG/DL Calcium Level 9.8 8.5-10.1 MG/DL Corrected Calcium 9.6 8.5-10.1 MG/DL Total Bilirubin 0.3 0.1-1.0 MG/DL Aspartate Amino Transf (AST/SGOT) 19 5-34 U/L Alanine Aminotransferase (ALT/SGPT) 24 0-55 U/L Alkaline Phosphatase 61 40-136 U/L Troponin I < 0.028 <0.028 NG/ML Total Protein 7.4 6.4-8.2 GM/DL Albumin 4.2 3.2-4.5 GM/DL Urine Color YELLOW Urine Clarity CLEAR Urine pH 5.5 5-9 Urine Specific Parker 1.020 1.016-1.022 Urine Protein NEGATIVE NEGATIVE Urine Glucose (UA) NEGATIVE NEGATIVE Urine Ketones NEGATIVE NEGATIVE Urine Nitrite NEGATIVE NEGATIVE Urine Bilirubin NEGATIVE NEGATIVE Urine Urobilinogen 0.2 < = 1.0 MG/DL Urine Leukocyte Esterase TRACE H NEGATIVE Urine RBC (Auto) NEGATIVE NEGATIVE Urine RBC NONE /HPF Urine WBC 2-5 /HPF Urine Squamous Epithelial Cells 2-5 /HPF Urine Crystals NONE /LPF Urine Bacteria FEW H /HPF Urine Casts NONE /LPF Urine Mucus SMALL H /LPF Urine Culture Indicated YES My Orders Orders - LUIS ALFREDO RIVERA DO Cbc With Automated Diff (10/16/22 22:04) Protime With Inr (10/16/22 22:04) Partial Thromboplastin Time (10/16/22 22:04) Comprehensive Metabolic Panel (10/16/22 22:04) Fibrin Degradation Products (10/16/22 22:04) Troponin I Cavalier (10/16/22 22:04) Ua Culture If Indicated (10/16/22 22:04) Chest 1 View, Ap/Pa Only (10/16/22 22:04) Ekg Tracing (10/16/22 22:04) Accucheck Stat ONCE (10/16/22 22:04) Ed Iv/Invasive Line Start (10/16/22 22:04) Ed Iv/Invasive Line Start (10/16/22 22:04) Vital Signs Stroke Patient Q15M (10/16/22 22:04) Ct Head Wo-R/O Stroke (10/16/22 22:04) O2 (10/16/22 22:04) Intake & Output 06,14,22 (10/16/22 22:04) Monitor-Rhythm Ecg Trace Only (10/16/22 22:04) Dysphagia Screening Tool Q10MX1 (10/16/22 22:04) Ct Angio Head/Neck (10/16/22 22:34) Iohexol Injection (Omnipaque 350 Mg/Ml 1 (10/16/22 23:30) Received Contrast (Hold Metformin- Contr (10/16/22 23:30) Sodium Chloride Flush (Catheter Flush Sy (10/16/22 23:30) Ns (Ivpb) (Sodium Chloride 0.9% Ivpb Bag (10/16/22 23:30) Urine Culture (10/16/22 23:15) Medications Given in ED Current Medications Medications Dose Ordered Sig/Dee Route Start Time Stop Time Status Last Admin Dose Admin Iohexol 100 ml ONCE ONCE IV 10/16/22 23:30 10/16/22 23:31 DC 10/16/22 23:29 75 ML Sodium Chloride 10 ml NEEDED PRN IV 10/16/22 23:30 10/17/22 01:24 DC 10/16/22 23:29 10 ML Sodium Chloride 100 ml ONCE ONCE IV 10/16/22 23:30 10/16/22 23:31 DC 10/16/22 23:29 80 ML Vital Signs/I&O 10/16/22 10/17/22 21:58 00:33 Temp 36.9 Pulse 77 74 Resp 20 18 B/P (MAP) 140/65 (90) 124/57 Pulse Ox 96 99 O2 Delivery Room Air Room Air Blood Pressure Mean: 90 Progress Progress Note : Progress Note STROKE ORDER SET INITIATED ACCUCHECK 153 LABS ALL UNREMARKABLE, GLUCOSE ON BLOOD DRAW IS 158. INITIAL CT SCAN IS NEGATIVE, CT ANGIOGRAM HEAD/NECK ORDERED. EKG IS NORMAL PT HAS NOT HAD ANY ARRHYTHMIAS DURING ER STAY VITALS STABLE 2230--PT STATES THE SYMPTOMS ARE GETTING BETTER, AND NOW ONLY HAS A "FUNNY SENSATION" BUT NOT NUMBNESS AND NO PAIN TO LATERAL ASPECT OF LEFT EYE AND TO HER LEFT CHEEK JUST BELOW HER LEFT EYE. HER VISION IS NORMAL. AT DISMISSAL, PT STATES HER SYMPTOMS HAVE RESOLVED. VITALS STABLE. DISCUSSED TEST RESULTS, ANTICIPATED COURSE, NEED FOR FOLLOW UP AND RETURN PRECAUTIONS. COMPUTER SYSTEM SHUT DOWN DURING PT'S ER STAY. Initial ECG Impression Date: Oct 16, 2022 Initial ECG Impression Time: 22:25 Initial ECG Rate: 73 Initial ECG Rhythm: Normal Sinus Initial ECG Intervals: Normal Initial ECG Comparisson: Unchanged Comment INTERPRETED BY ME Diagnostic Imaging Comments CT HEAD--PER [facility] RADIOLOGIST VIA PHONE AT [phone] AND VIA FAX AT [phone] -NO ACUTE FINDINGS ( VERBAL REPORT ) -PERIVENTRICULAR SMALL VESSEL ISCHEMIC CHANGE. NO HEMORRHAGE, NO ICH, NO MASS EFFECT OR EDEMA. -NO EVIDENCE OF ACUTE CORTICAL STROKE. CT ANGIOGRAM HEAD/NECK--PER [facility] RADIOLOGIST VIA PHONE AT [phone] AND VIA FAX AT [phone] -NO ACUTE FINDINGS ( VERBAL REPORT) -NORMAL HEAD CTA -NO ACUTE FINDINGS IN THE ARTERIES OF THE NECK. -MILD STENOSIS OF 40% OF RIGHT COMMON CAROTID ARTERY, NO DISSECTION . -MILD TO MODERATE STENOSIS OF 50% RIGHT INTERNAL CAROTID ARTERY. NO DISSECTION -10% STENOSIS OF LEFT COMMON CAROTID ARTERY. NO DISSECTION -20% STENOSIS OF LEFT INTERNAL CAROTID ARTERY. NO DISSECTION -NO RIGHT OR LEFT EXTERNAL CAROTID ARTERY OCCLUSION OR STENOSIS OR DISSECTION -NO RIGHT OR LEFT VERTEBRAL ARTERY OCCLUSIO OR STENOSIS OR DISSECTION. Reviewed: Reviewed by Me, Discussed w/Radiologist Departure Impression Primary Impression: TRANSIENT LEFT FACIAL PARESTHESIAS Disposition: 01 HOME, SELF-CARE Condition: Stable Departure-Patient Inst. Decision time for Depature: 00:05 Referrals: JESSIE CONROY DNP (PCP/Family) Primary Care Physician Add. Discharge Instructions: SEE COPY OF HAND WRITTEN DISCHARGE INSTRUCTIONS. All discharge instructions reviewed with patient and/or family. Voiced understanding. LUIS ALFREDO RIVERA DO Oct 16, 2022 22:15
[2022-10-16 22:16] LABS: ALBUMIN 4.2 GM/DL (3.2-4.5); CHLORIDE 100 MMOL/L (98-107); POTASSIUM 3.6 MMOL/L (3.6-5.0); SODIUM 140 MMOL/L (135-145)
[2022-10-16 22:18] LABS: CALCIUM 9.8 MG/DL (8.5-10.1)
[2022-10-16 22:19] LABS: GLUCOSE 158 MG/DL (70-105); TOTAL PROTEIN 7.4 GM/DL (6.4-8.2)
[2022-10-16 22:20] LABS: CARBON DIOXIDE 28 MMOL/L (21-32); INR 0.9 (0.8-1.4); PROTHROMBIN TIME PATIENT 12.3 SEC (12.2-14.7)
[2022-10-16 22:21] LABS: BILIRUBIN,TOTAL 0.3 MG/DL (0.1-1.0)
[2022-10-16 22:22] LABS: ALKALINE PHOSPHATASE 61 U/L (40-136)
[2022-10-16 22:23] LABS: CREATININE SERUM 0.87 MG/DL (0.60-1.30); GFR ESTIMATED 73
[2022-10-16 22:24] LABS: BUN/CREATININE RATIO 21
[2022-10-16 22:25] LABS: ALANINE AMINOTRANSFERASE 24 U/L (0-55)
[2022-10-16 22:53] LABS: FIBRIN DEGRADATION PRODUCTS 0.39 UG/ML (0.00-0.49)
[2022-10-16 23:18] LABS: BILIRUBIN,URINE NEGATIVE (NEGATIVE); CLARITY,URINE CLEAR; COLOR,URINE YELLOW; GLUCOSE, URINE (UA) NEGATIVE (NEGATIVE); KETONES,URINE NEGATIVE (NEGATIVE); LEUKOCYTE ESTERASE ,URINE TRACE (NEGATIVE); NITRITE,URINE NEGATIVE (NEGATIVE); PH,URINE 5.5 (5-9); PROTEIN,URINE NEGATIVE (NEGATIVE)
[2022-10-16] MEDS ORDERED: NS 100 ML (IVPB) BAG IV ONE (23:30)
[2022-10-16] MEDS ORDERED: CATHETER FLUSH 10 ML SYR IV PRN (23:30)
[2022-10-16] MEDS ORDERED: IOHEXOL 350 MG/ML 100 ML (OMNIPAQUE 350) VIAL IV ONE (23:30)
[2022-10-16] MEDS ORDERED: HOLD METFORMIN - RECEIVED CONTRAST 20 ML VIAL IV SCH (23:30)
[2022-10-16 23:33] LABS: BACTERIA,URINE FEW /HPF
[2022-10-17 00:33] VITALS: BP 124/57
--- NOTE | 2022-10-17 05:39 | Diagnostic Imaging Report ---
PROCEDURE: CT angiography of the head and CT angiography of the neck with and without contrast. TECHNIQUE: Contiguous noncontrast images were obtained from the skull base through the vertex. After intravenous contrast administration, helical CT angiography of the neck was performed. Source data was reformatted into 3D MIP projections. Delayed post contrast acquisition was also obtained. Auto Exposure Controls were utilized during the CT exam to meet ALARA standards for radiation dose reduction. INDICATION: 67-year-old female with altered sensorium with left facial tingling. COMPARISONS: None FINDINGS: There is normal arch origin of great vessels. Both common carotid arteries are widely patent. There is calcific atherosclerosis at the bifurcations which does result in approximately 70% stenosis at the origin of the right ICA and 20 to 30% stenosis at the origin of the left ICA. The cervical, high cervical, petrous, cavernous and supraclinoid segment of both ICA are normal. A1 and A2 segments of both JOLLY, M1, M2 and M3 trifurcation vessels of both MCA fill normally. The left vertebral artery is dominant. Both vertebral arteries are patent to the skull base. The PICA, basilar artery, AICA and SCA and church worker are normal. Lung apices are clear. Superior mediastinum is unremarkable. Parapharyngeal and paraspinous soft tissues are also unremarkable. IMPRESSION: 1. 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 This does result in approximately 70% stenosis at the origin right ICA. 2. There is no large vessel or medium vessel occlusion seen intracranial circulation. 3. The dominant left vertebral artery. Both vertebral arteries are widely patent to the basilar artery. Additional nonemergent findings as described above. Dictated by: Dictated on workstation # [id number]
--- NOTE | 2022-10-17 05:48 | Diagnostic Imaging Report ---
PROCEDURE: CT head wo r/o stroke. TECHNIQUE: Multiple contiguous axial images were obtained through the brain without the use of intravenous contrast. Auto Exposure Controls were utilized during the CT exam to meet ALARA standards for radiation dose reduction. INDICATION: Left-sided facial tingling, altered sensorium. COMPARISONS: None FINDINGS: The midline structures are not displaced. Lateral, 3rd and 4th ventricles are normal in size, shape and anatomic position. There is no mass, mass effect, hydrocephalus or hemorrhage. Vega-white differentiation is normal. There is no sulcal effacement. There is some mild frontal lobe atrophy. There are no abnormal extra axial fluid collections or hemorrhage. Basilar cisterns appear normal. Sinuses, orbits and mastoid air cells are unremarkable. IMPRESSION: Some mild nonspecific frontal lobe atrophy otherwise unremarkable nonenhanced CT brain. Additional nonemergent findings as described above. Dictated by: Dictated on workstation # [id number]
--- NOTE | 2022-10-17 08:05 | Diagnostic Imaging Report ---
EXAMINATION: Chest 1 view HISTORY: Strokelike symptoms. COMPARISON: None available. FINDINGS: The lungs are clear without edema or pneumonia. No pleural effusion or pneumothorax. Heart size is normal. IMPRESSION: 1. Clear lungs. Dictated by: Dictated on workstation # [id number]
== END 2022-10-17 00:33 | disposition home or self-care (01) ==
LOC: EDUNIT# 21:52 → ER 21:54
DX: R20.2 Paresthesia of skin (principal); F90.9 Attention-deficit hyperactivity disorder, unspecified type; G47.30 Sleep apnea, unspecified; Z99.89 Dependence on other enabling machines and devices; Z79.899 Other long term (current) drug therapy
CPT/HCPCS: 36415; 70450; 70496; 70498; 71045; 80053; 81000; 82947; 84484; 85025; 85379; 85610; 85730; 87088; 93005; 93041

== ENCOUNTER → 2022-10-23 | Outpatient (CLI) | payer MEDICARE ==
--- NOTE | 2022-10-24 10:50 | Diagnostic Imaging Report ---
Indication: Routine screening. Comparison is made with prior mammogram from 01/23/2021 and 04/12/2019. 2-D and 3-D bilateral screening mammography was performed with CAD. The current study was also evaluated with a Computer Aided Detection (CAD) system. Both breasts are heterogeneously dense, limiting the sensitivity of mammography. The parenchymal pattern is stable. No mass or malignant-appearing microcalcifications are seen. Axillae are unremarkable. IMPRESSION: BI-RADS Category 1 No mammographic features suspicious for malignancy are identified. ACR BI-RADS Category 1: Negative. Result letter will be mailed to the patient. Note: At least 10% of breast cancer is not imaged by mammography. Dictated by: Dictated on workstation # [id number]
== END ==
LOC: RAD 15:05
PROVIDERS: ATTEND Nurse Practitioner Family
DX: Z12.31 Encounter for screening mammogram for malignant neoplasm of breast (principal)
CPT/HCPCS: 77063; 77067

== ENCOUNTER → 2022-12-18 | Outpatient (CLI) | payer MEDICARE, SELFPAY ==
--- NOTE | 2022-12-18 11:39 | Diagnostic Imaging Report ---
INDICATION: Chest pain, family history of heart disease, coronary artery screening. CT coronary calcium scoring study performed with noncontrast images of the heart followed by calculation of cardiac calcium score. Dose reduction protocol was used. Visualized portions of the mediastinum show no adenopathy. The visualized portions of aorta show no aneurysm, there is some mild calcified plaque in the aortic wall. Visualized portions of the lung mobley appear unremarkable. The entirety of the lungs are not included on the study. Coronary calcifications are visualized in the left main coronary artery, LAD, and right coronary artery. There are no significant calcifications in the circumflex territory. Calcium score of 33.5 is obtained for the left main, 39.5 for LAD, and 51 for right coronary artery. Total coronary calcium score was 124. IMPRESSION: Coronary calcium score of 124 is compatible with a moderate overall plaque burden. Consider further workup as clinically warranted. Dictated by: Dictated on workstation # [id number]
== END ==
LOC: RAD 09:02
PROVIDERS: ATTEND Internal Medicine
DX: Z13.6 Encounter for screening for cardiovascular disorders (principal); R07.9 Chest pain, unspecified; Z84.89 Family history of other specified conditions
CPT/HCPCS: 75571